=== PATIENT | male | born 1995 | race Caucasian/White ===

== ENCOUNTER 2018-11-24 14:09 | Emergency (ER) | payer MEDICAID, OTHER ==
[~2018-11-24] VITALS: Ht 172.7 cm; Wt 84.1 kg
[~2018-11-24 14:09] MED LIST: IBUP-725 PO
[2018-11-24 14:40] VITALS: Ht 172.7 cm; Wt 84.1 kg
[2018-11-24] MEDS: PROPOFOL 200 MG INJ IV ONE ×2 (15:21→15:37)
[2018-11-24] MEDS ORDERED: HYDR-3980 PO (16:16)
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
[2018-11-24 17:05] VITALS: BP 138/80; PULSE 100; RESP 16
== END 2018-11-24 17:11 | disposition home or self-care (01) ==
LOC: E/R 14:09
DX: S43.004A Unspecified dislocation of right shoulder joint, initial encounter (principal); F17.210 Nicotine dependence, cigarettes, uncomplicated; Y04.0XXA Assault by unarmed brawl or fight, initial encounter
CPT/HCPCS: 23650; 73030; 94770; Z7502; Z7610